=== PATIENT | male | born 1985 | race African-American/Black ===

== ENCOUNTER 2017-12-31 16:59 | Emergency (ER) | payer SELFPAY ==
[2017-12-31 17:08] VITALS: BP 110/68; PULSE 73; TEMP 98; BMI 25.9
--- NOTE | 2017-12-31 17:53 | PDOC ---
History of Present Illness - General Chief Complaint: Suicidal Stated Complaint: SUICIDAL, SUBSTANCE ABUSE Time Seen by Provider: 12/31/17 17:20 History Source: Patient Exam Limitations: No Limitations - History of Present Illness Initial Comments: 12/31/17 17:43 32 yo male no significant pmh presents with personnel for a 1st time suicidal thoughts. Patient states he is going through a rough time since he just found out he will only be able to see his son 1x a week for [address] and was just kicked out of the house by his mother since he is not paying rent. Patient admits to a 14 year history of alcohol and drug abuse and states he used 3 grams of cocaine and drank 1 pint of liquor today. Patient denies current suicidal or homicidal thoughts and does not have a plan in which to hurt himself. 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 Denies CP, SOB or any current medical complaints. Last drink 2pm After speaking with the [place], concerns for patients placement and detox are apparent. Past History - Past Medical History Allergies/Adverse Reactions: Allergies Allergy/AdvReac Type Severity Reaction Status Date / Time No Known Allergies Allergy Verified 12/31/17 17:09 Home Medications: Ambulatory Orders NK [No Known Home Medication] 02/26/16 Anemia: No Asthma: No Cancer: No Cardiac Disorders: No CVA: No COPD: No CHF: No Dementia: No Diabetes: No GI Disorders: No Disorders: No HTN: No Hypercholesterolemia: No Kidney Stones: No Liver Disease: No Seizures: No Thyroid Disease: No - Surgical History Abdominal Surgery: No Appendectomy: No Cardiac Surgery: No Cholecystectomy: No Lung Surgery: No Neurologic Surgery: No Orthopedic Surgery: No - Reproductive History Testicular Surgery: No - Suicide/Smoking/Psychosocial Hx Smoking History: Former smoker Have you smoked in the past 12 months: Yes Number of Cigarettes Smoked Daily: 10 Cigars Per Day: 0 Information on smoking cessation initiated: No 'Breaking Loose' booklet given: 02/26/16 Hx Alcohol Use: Yes Drug/Substance Use Hx: Yes (COCAINE MARIJUANA) Substance Use Type: Cocaine, Marijuana Hx Substance Use Treatment: No Review of Systems - Review of Systems Constitutional: No: Chills, Fever Respiratory: No: Shortness of Breath Cardiac (ROS): No: Chest Pain, Irregular Heart Rate ABD/GI: No: Constipated, Diarrhea, Nausea, Vomiting : No: Burning, Dysuria Neurological: Yes: Headache (mild) Psychiatric: Yes: Other (thoughts of harm today, no current SI or HI) *Physical Exam - Vital Signs Last Vital Signs Temp Pulse Resp BP Pulse Ox 98 F 73 18 110/68 98 12/31/17 17:01 12/31/17 17:01 12/31/17 17:01 12/31/17 17:01 12/31/17 17:01 - Physical Exam General Appearance: Yes: Nourished, Appropriately Dressed. No: Apparent Distress HEENT: positive: EOMI, BARBARA Respiratory/Chest: positive: Lungs Clear, Normal Breath Sounds. negative: Respiratory Distress, Crackles, Wheezing Cardiovascular: positive: Regular Rhythm, Regular Rate, S1, S2. negative: Edema , JVD, Murmur Gastrointestinal/Abdominal: positive: Normal Bowel Sounds. negative: Distended , Guarding, Rebound, Tenderness Musculoskeletal: positive: Normal Inspection Extremity: positive: Normal Capillary Refill Integumentary: positive: Normal Color, Dry, Warm Neurologic: positive: Fully Oriented, Alert. negative: Normal Mood/Affect ( depressed) Medical Decision Making - Medical Decision Making 12/31/17 18:07 12/31/17 17:43 32 yo male no significant pmh presents with personnel for a 1st time suicidal thoughts. Patient states he is going through a rough time since he just found out he will only be able to see his son 1x a week for [address] and was just kicked out of the house by his mother since he is not paying rent. Patient admits to a 14 year history of alcohol and drug abuse and states he used 3 grams of cocaine and drank 1 pint of liquor today. Patient denies current suicidal or homicidal thoughts and does not have a plan in which to hurt himself. 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 Denies CP, SOB or any current medical complaints. After speaking with the [facility], concerns for patients placement and detox are apparent. Behavioral health/Psych follow up appoint attempting to be set up this coming Tuesday (2 days from now) Will contact [facility] for detox. 12/31/17 19:41 [facility] accepts the patient and will be discharged 12/31/17 19:43 *DC/Admit/Observation/Transfer Diagnosis at time of Disposition: Alcohol abuse Intoxication by drug Qualifiers: Complication of substance-induced condition: uncomplicated Qualified Code(s): F19.920 - Other psychoactive substance use, unspecified with intoxication, uncomplicated - Discharge Dispostion Disposition: RETIREMENT FACILITY Condition at time of disposition: Stable Decision to Admit order: No - Referrals Referrals: Deandre Adame MD [Staff Physician] - - Patient Instructions Printed Discharge Instructions: DI for Suicidal Ideation-Adult Additional Instructions: Transferred to [facility] for Detox Please follow up with the Primary Care Doctor referred. Follow up with behavioral health and Psychiatry with an appointment made by the [facility] Cunningham and [facility] Cerna. Thank you - Post Discharge Activity Forms/Work/School Notes: My Personal Safety Plan
[2017-12-31] MEDS ORDERED: IBUPROFEN 600 MG TABLET (FP) PO ONE ×2 (19:38→19:41)
--- NOTE | 2017-12-31 20:14 | PDOC ---
Attending Attestation - Resident Resident Name: WinsomeLaurent - ED Attending Attestation I have performed the following: I have examined & evaluated the patient, The case was reviewed & discussed with the resident, I agree w/resident's findings & plan, Exceptions are as noted - HPI HPI: 12/31/17 20:05 32 M with no PMH who presents to ED intoxicated. Pt states that he drank a bottle of mony and used 3 grams of cocaine today. Pt endorse significant life stressors, including difficulty seeing his son and being kicked out of his mom's house. 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 Patient endorses feeling depressed but adamantly denies having any suicidal ideations or homicidal ideations. Denies ever having expressed suicidal ideation. Denies any prior h/o suicide attempts or depression. Denies auditory or visual hallucinations. Allergies: None Social history: Current Alcohol use. Current cocaine use. No smoking. Surgical history: None PMD: None - Physicial Exam PE: 12/31/17 20:14 "GENERAL: Awake, alert, and fully oriented, in no acute distress. HEAD: No signs of trauma EYES: PERRLA, EOMI, sclera anicteric, conjunctiva clear ENT: Auricles normal inspection, hearing grossly normal, nares patent, oropharynx clear without exudates. Moist mucosa NECK: Nontender, no stepoffs, Normal ROM, supple, no lymphadenopathy, JVD, or masses LUNGS: Breath sounds equal, clear to auscultation bilaterally. No wheezes, and no crackles HEART: Regular rate and rhythm, normal S1 and S2, no murmurs, rubs or gallops ABDOMEN: Soft, nontender, normoactive bowel sounds. No guarding, no rebound. No masses EXTREMITIES: Normal range of motion, no edema. No clubbing or cyanosis. No cords, erythema, or tenderness NEUROLOGICAL: Cranial nerves II through XII intact. 5/5 strength and sensation in all extremities, Normal speech, normal gait, normal cerebellar function SKIN: Warm, Dry, normal turgor, no rashes or lesions noted." - Medical Decision Making 12/31/17 20:15 32 M brought to ED for intoxication. Pt adamantly denies SI/HI/AVH to me. Pt appears clinically sober at this time, seems to be of sound judgment. Does not have any distracting injury and has capacity to make decisions for himself. I offered pt psych consultation for his depression, which he refused. However, he is amenable to going to detox. Spoke with [facility] [place] [facility], who has bed available. - [facility]fer [facility] Pt is well appearing, with normal vitals. Clinically stable for DC at this time. I discussed the physical exam findings, ancillary test results and final diagnoses with the patient. I answered all of the patient's questions. The patient was satisfied with the care received and felt comfortable with the discharge plan and treatment plan. The patient agrees to follow up with the primary care physician within 24-72 hours.
== END 2017-12-31 19:54 | disposition other institution (70) ==
LOC: JER 16:59
DX: F10.10 Alcohol abuse, uncomplicated (principal); F14.10 Cocaine abuse, uncomplicated; F12.10 Cannabis abuse, uncomplicated
CPT/HCPCS: 99282-25

== ENCOUNTER 2017-12-31 21:51 | Inpatient (IN) | payer SELFPAY ==
[2017-12-31] MEDS ORDERED: MELATONIN 5 MG TABLETS PO PRN (22:00)
[2017-12-31 22:06] VITALS: BMI 25.8
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
[2017-12-31] MEDS ORDERED: NICOTINE POLACRILEX 2 MG GUM BC PRN (22:30)
[2017-12-31] MEDS ORDERED: MAGNESIUM HYDROX 2400MG/30ML ORAL SUSPENSION 30 ML CUP PO PRN (22:30)
[2017-12-31] MEDS ORDERED: MENTHOL/PHENOL 1 EACH UD MM PRN (22:30)
[2017-12-31] MEDS ORDERED: ACETAMINOPHEN 325 MG TABLET (FP) PO PRN (22:30)
[2017-12-31] MEDS ORDERED: guaiFENesin/D-METHORPHAN HB 10 ML UNIT-DOSE CUPS PO PRN (22:30)
[2017-12-31] MEDS ORDERED: LOPERAMIDE HCL 2 MG CAPSULE PO PRN (22:30)
[2017-12-31] MEDS ORDERED: IBUPROFEN 400 MG TABLET (FP) PO PRN (22:30)
[2017-12-31] MEDS ORDERED: chlordiazePOXIDE HCL 25 MG CAPSULE PO ONE (22:30)
[2017-12-31] MEDS ORDERED: P-EPHED 60MG/TRIPROLIDI 2.5MG TABLET PO PRN (22:30)
[2017-12-31] MEDS ORDERED: MAG HYDROX/AL HYDROX/SIMETH 30 ML UNIT-DOSE CUP PO PRN (22:30)
[2017-12-31] MEDS ORDERED: MAGNESIUM CITRATE 300 ML BOTTLE PO PRN (22:30)
[2017-12-31] MEDS ORDERED: hydrOXYzine PAMOATE 25 MG CAPSULE (FP) PO PRN (22:30)
[2017-12-31] MEDS ORDERED: chlordiazePOXIDE HCL 25 MG CAPSULE PO PRN (22:30)
[2017-12-31] MEDS: chlordiazePOXIDE HCL 25 MG CAPSULE PO SCH (23:40)
[2018-01-01 02:02] LABS: URINE APPEARANCE TURBID; URINE BILIRUBIN NEGATIVE (<2.0 mg/dL); URINE COLOR YELLOW; URINE GLUCOSE (UA) NEGATIVE (NEGATIVE); URINE KETONE TRACE (NEGATIVE); URINE LEUK ESTERASE NEGATIVE (NEGATIVE); URINE NITRITE NEGATIVE (NEGATIVE); URINE UROBILINOGEN NEGATIVE mg/dL (0.2-1.0)
[2018-01-01 02:13] LABS: URINE PROTEIN 1+ (NEGATIVE)
[2018-01-01 02:16] LABS: URINE MUCUS MANY
[2018-01-01] MEDS: chlordiazePOXIDE HCL 25 MG CAPSULE PO SCH ×4 (07:01→22:54)
[2018-01-01 10:43] LABS: HEMATOCRIT 40.3 % (35.4-49); HEMOGLOBIN 13.7 GM/dL (11.7-16.9); MCH 34.1 pg (25.7-33.7); MCHC 33.9 g/dl (32.0-35.9); MEAN CELL VOLUME 100.6 fl (80-96); MEAN PLT VOLUME 9.1 fl (7.5-11.1); PLATELET COUNT 152 K/MM3 (134-434); RBC 4.01 M/mm3 (4.00-5.60); RDW 12.5 % (11.9-15.9); WHITE BLOOD COUNT 3.6 K/mm3 (4.0-10.0)
[2018-01-01 10:55] LABS: CHLORIDE 104 mmol/L (98-107); POTASSIUM 3.5 mmol/L (3.5-5.1); SODIUM 144 mmol/L (136-145)
[2018-01-01] MEDS: PRENATAL VITAMINS W/ FOLIC ACID TABLET (FP) PO SCH (10:55)
[2018-01-01] MEDS: NICOTINE 14 MG/24 HOURS TOPICAL PATCH TD SCH (10:55)
[2018-01-01 11:06] LABS: ALBUMIN 3.5 g/dl (3.4-5.0); ALK PHOS 56 U/L (45-117); ANION GAP 12 MMOL/L (8-16); BILIRUBIN,TOTAL 0.8 mg/dL (0.2-1.0); BLOOD UREA NITROGEN 18 mg/dL (7-18); CALCIUM 8.7 mg/dL (8.5-10.1); CO2 28 mmol/L (21-32); CREATININE 1.2 mg/dL (0.55-1.3); GLUCOSE,RANDOM 95 mg/dL (74-106); SGOT/AST 20 U/L (15-37); SGPT/ALT 26 U/L (13-61); TOT PROT 6.6 g/dl (6.4-8.2)
--- NOTE | 2018-01-01 11:58 | CONSULT ---
[facility] Psychiatric Consult - Data Date of interview: 01/01/18 Admission source: [facility] Identifying data: 2nd Detox admission for this 32 y/o AA male single, employed, domiciled,, reside with his mother father of 1. His prior admission was in [facility] last year Substance Abuse History: Here for ETOH, cocaine, cannabis and nicotine. drink alcohol and use drugs in the context of ongoing conflicts with his son mother' s. He complains of having trouble seeing his child and was kept away. Refer to addiction counselor summary for detailed substance use history Medical History: No acute medical problem. History of GERD Psychiatric History: No psychiatric history, but feels depressed over conflicts with his child' mother unable to see his child, feeks highly distressed about it. He denies appetite or sleep disturbances, denies anxiety or mood swings, denies suicidal or homicidal ideation Physical/Sexual Abuse/Trauma History: No history of abuse Additional Comment: None Mental Status Exam - Mental Status Exam Alert and Oriented to: Place, Person Cognitive Function: Good Patient Appearance: Well Groomed Mood: Anxious Affect: Appropriate Patient Behavior: Cooperative Speech Pattern: Clear Voice Loudness: Normal, Mildly Soft/Quiet Thought Process: Intact Thought Disorder: Not Present Hallucinations: Denies Suicidal Ideation: Denies Homicidal Ideation: Denies Insight/Judgement: Poor Muscle strength/Tone: Normal Psychiatric Findings - Problem List ([place] 1, 2,3) (1) GERD (gastroesophageal reflux disease) Current Visit: Yes Status: Chronic Qualifiers: Esophagitis presence: esophagitis presence not specified Qualified Code(s) : K21.9 - Gastro-esophageal reflux disease without esophagitis (2) Alcohol abuse Current Visit: No Status: Acute (3) Cannabis dependence Current Visit: No Status: Acute (4) Nicotine dependence Current Visit: No Status: Acute - Initial Treatment Plan Initial Treatment Plan: Continue detox treatment. Monitor response
--- NOTE | 2018-01-01 13:33 | PN ---
[facility] CIWA - CIWA Score Nausea/Vomitin-Mild Nausea/No Vomiting Muscle Tremors: 4-Moderate,w/Arms Extend Anxiety: 4-Mod. Anxious/Guarded Agitation: 4-Moderately Restless Paroxysmal Sweats: 1-Minimal Palms Moist Orientation: 0-Oriented Tacttile Disturbances: 1-Very Mild Itch/Numbness Auditory Disturbances: 1-Very Mild Visual Disturbances: 0-None Headache: 0-None Present CIWA-Ar Total Score: 16 BHS Progress Note (SOAP) Subjective: tremor sweat restlessness shake and chill Objective: 01/01/18 13:33 Vital Signs Temperature 97.7 F 01/01/18 09:26 Pulse Rate 60 01/01/18 09:26 Respiratory Rate 18 01/01/18 09:26 Blood Pressure 112/91 01/01/18 09:26 O2 Sat by Pulse Oximetry (%) Laboratory Last Values WBC 3.6 K/mm3 (4.0-10.0) L 01/01/18 07:25 RBC 4.01 M/mm3 (4.00-5.60) 01/01/18 07:25 Hgb 13.7 GM/dL (11.7-16.9) 01/01/18 07:25 Hct 40.3 % (35.4-49) 01/01/18 07:25 MCV 100.6 fl (80-96) H 01/01/18 07:25 MCH 34.1 pg (25.7-33.7) H 01/01/18 07:25 MCHC 33.9 g/dl (32.0-35.9) 01/01/18 07:25 RDW 12.5 % (11.9-15.9) 01/01/18 07:25 Plt Count 152 K/MM3 (134-434) 01/01/18 07:25 MPV 9.1 fl (7.5-11.1) 01/01/18 07:25 Sodium 144 mmol/L (136-145) 01/01/18 07:25 Potassium 3.5 mmol/L (3.5-5.1) 01/01/18 07:25 Chloride 104 mmol/L (98-107) 01/01/18 07:25 Carbon Dioxide 28 mmol/L (21-32) 01/01/18 07:25 Anion Gap 12 MMOL/L (8-16) 01/01/18 07:25 BUN 18 mg/dL (7-18) 01/01/18 07:25 Creatinine 1.2 mg/dL (0.55-1.3) 01/01/18 07:25 Creat Clearance w eGFR > 60 (>60) 01/01/18 07:25 Random Glucose 95 mg/dL (74-106) 01/01/18 07:25 Calcium 8.7 mg/dL (8.5-10.1) 01/01/18 07:25 Total Bilirubin 0.8 mg/dL (0.2-1.0) 01/01/18 07:25 AST 20 U/L (15-37) 01/01/18 07:25 ALT 26 U/L (13-61) 01/01/18 07:25 Alkaline Phosphatase 56 U/L (45-117) 01/01/18 07:25 Total Protein 6.6 g/dl (6.4-8.2) 01/01/18 07:25 Albumin 3.5 g/dl (3.4-5.0) 01/01/18 07:25 Urine Color Yellow 12/31/17 23:21 Urine Appearance Turbid 12/31/17 23:21 Urine pH 5.0 (5.0-8.0) 12/31/17 23:21 Ur Specific [place] 1.031 (1.001-1.035) 12/31/17 23:21 Urine Protein 1+ (NEGATIVE) H 12/31/17 23:21 Urine Glucose (UA) Negative (NEGATIVE) 12/31/17 23:21 Urine Ketones Trace (NEGATIVE) H 12/31/17 23:21 Urine Blood Negative (NEGATIVE) 12/31/17 23:21 Urine Nitrite Negative (NEGATIVE) 12/31/17 23:21 Urine Bilirubin Negative (<2.0 mg/dL) 12/31/17 23:21 Urine Urobilinogen Negative mg/dL (0.2-1.0) 12/31/17 23:21 Ur Leukocyte Esterase Negative (NEGATIVE) 12/31/17 23:21 Urine WBC (Auto) None /hpf (3-5) 12/31/17 23:21 Urine RBC (Auto) None /hpf (0-3) 12/31/17 23:21 Urine Mucus Many 12/31/17 23:21 RPR Titer Nonreactive (NONREACTIVE) 01/01/18 07:25 HIV 1&2 Antibody Screen Negative 01/01/18 07:25 HIV P24 Antigen Negative 01/01/18 07:25 lab noted Assessment: 01/01/18 13:33 withdrawal sx Plan: continue detox
--- NOTE | 2018-01-01 22:28 | EKG ---
Test Reason : Blood Pressure : / mmHG Vent. Rate : 057 BPM Atrial Rate : 057 BPM P-R Int : 196 ms QRS Dur : 094 ms QT Int : 430 ms P-R-T Axes : 063 032 045 degrees QTc Int : 418 ms SINUS BRADYCARDIA POSSIBLE LEFT ATRIAL ENLARGEMENT BORDERLINE ECG NO PREVIOUS ECGS AVAILABLE Confirmed by JOSEMANUEL GOMEZ MD ([id number]) on 01/01/2018 10:28:16 PM Referred By: Confirmed By:JOSEMANUEL GOMEZ MD
[2018-01-01] MEDS: THIAMINE HCL 100 MG TABLET (FP) PO SCH (22:54)
[2018-01-02] MEDS: chlordiazePOXIDE HCL 25 MG CAPSULE PO SCH ×3 (06:30→18:01)
[2018-01-02] MEDS: NICOTINE 14 MG/24 HOURS TOPICAL PATCH TD SCH (10:54)
[2018-01-02] MEDS: PRENATAL VITAMINS W/ FOLIC ACID TABLET (FP) PO SCH (10:54)
--- NOTE | 2018-01-02 15:13 | PN ---
[facility] CIWA - CIWA Score Nausea/Vomitin-No Nausea/No Vomiting Muscle Tremors: 3 Anxiety: 2 Agitation: 3 Paroxysmal Sweats: 1-Minimal Palms Moist Orientation: 0-Oriented Tacttile Disturbances: 1-Very Mild Itch/Numbness Auditory Disturbances: 1-Very Mild Visual Disturbances: 0-None Headache: 0-None Present CIWA-Ar Total Score: 11 BHS Progress Note (SOAP) Subjective: diarrhea sweat tremor restlessness irritable Objective: 01/02/18 15:12 Vital Signs Temperature 97.0 F L 01/02/18 13:19 Pulse Rate 57 L 01/02/18 13:19 Respiratory Rate 20 01/02/18 13:19 Blood Pressure 126/77 01/02/18 13:19 O2 Sat by Pulse Oximetry (%) Laboratory Last Values WBC 3.6 K/mm3 (4.0-10.0) L 01/01/18 07:25 RBC 4.01 M/mm3 (4.00-5.60) 01/01/18 07:25 Hgb 13.7 GM/dL (11.7-16.9) 01/01/18 07:25 Hct 40.3 % (35.4-49) 01/01/18 07:25 MCV 100.6 fl (80-96) H 01/01/18 07:25 MCH 34.1 pg (25.7-33.7) H 01/01/18 07:25 MCHC 33.9 g/dl (32.0-35.9) 01/01/18 07:25 RDW 12.5 % (11.9-15.9) 01/01/18 07:25 Plt Count 152 K/MM3 (134-434) 01/01/18 07:25 MPV 9.1 fl (7.5-11.1) 01/01/18 07:25 Sodium 144 mmol/L (136-145) 01/01/18 07:25 Potassium 3.5 mmol/L (3.5-5.1) 01/01/18 07:25 Chloride 104 mmol/L (98-107) 01/01/18 07:25 Carbon Dioxide 28 mmol/L (21-32) 01/01/18 07:25 Anion Gap 12 MMOL/L (8-16) 01/01/18 07:25 BUN 18 mg/dL (7-18) 01/01/18 07:25 Creatinine 1.2 mg/dL (0.55-1.3) 01/01/18 07:25 Creat Clearance w eGFR > 60 (>60) 01/01/18 07:25 Random Glucose 95 mg/dL (74-106) 01/01/18 07:25 Calcium 8.7 mg/dL (8.5-10.1) 01/01/18 07:25 Total Bilirubin 0.8 mg/dL (0.2-1.0) 01/01/18 07:25 AST 20 U/L (15-37) 01/01/18 07:25 ALT 26 U/L (13-61) 01/01/18 07:25 Alkaline Phosphatase 56 U/L (45-117) 01/01/18 07:25 Total Protein 6.6 g/dl (6.4-8.2) 01/01/18 07:25 Albumin 3.5 g/dl (3.4-5.0) 01/01/18 07:25 Urine Color Yellow 12/31/17 23:21 Urine Appearance Turbid 12/31/17 23:21 Urine pH 5.0 (5.0-8.0) 12/31/17 23:21 Ur Specific [place] 1.031 (1.001-1.035) 12/31/17 23:21 Urine Protein 1+ (NEGATIVE) H 12/31/17 23:21 Urine Glucose (UA) Negative (NEGATIVE) 12/31/17 23:21 Urine Ketones Trace (NEGATIVE) H 12/31/17 23:21 Urine Blood Negative (NEGATIVE) 12/31/17 23:21 Urine Nitrite Negative (NEGATIVE) 12/31/17 23:21 Urine Bilirubin Negative (<2.0 mg/dL) 12/31/17 23:21 Urine Urobilinogen Negative mg/dL (0.2-1.0) 12/31/17 23:21 Ur Leukocyte Esterase Negative (NEGATIVE) 12/31/17 23:21 Urine WBC (Auto) None /hpf (3-5) 12/31/17 23:21 Urine RBC (Auto) None /hpf (0-3) 12/31/17 23:21 Urine Mucus Many 12/31/17 23:21 RPR Titer Nonreactive (NONREACTIVE) 01/01/18 07:25 HIV 1&2 Antibody Screen Negative 01/01/18 07:25 HIV P24 Antigen Negative 01/01/18 07:25 lab noted Assessment: 01/02/18 15:13 withdrawal sx Plan: continue detox
[2018-01-02] MEDS: chlordiazePOXIDE 5 MG CAPSULE PO SCH (22:42)
[2018-01-02] MEDS: THIAMINE HCL 100 MG TABLET (FP) PO SCH (22:42)
[2018-01-03] MEDS: chlordiazePOXIDE 5 MG CAPSULE PO SCH ×3 (07:37→17:42)
[2018-01-03] MEDS: PRENATAL VITAMINS W/ FOLIC ACID TABLET (FP) PO SCH (11:00)
[2018-01-03] MEDS: NICOTINE 14 MG/24 HOURS TOPICAL PATCH TD SCH (11:00)
--- NOTE | 2018-01-03 11:40 | PN ---
S Progress Note (SOAP) Subjective: feeling better no gi distress no tremor less sweat Objective: 01/03/18 11:38 Vital Signs Temperature 97.8 F 01/03/18 09:49 Pulse Rate 49 L 01/03/18 09:49 Respiratory Rate 18 01/03/18 09:49 Blood Pressure 115/65 01/03/18 09:49 O2 Sat by Pulse Oximetry (%) Laboratory Last Values WBC 3.6 K/mm3 (4.0-10.0) L 01/01/18 07:25 RBC 4.01 M/mm3 (4.00-5.60) 01/01/18 07:25 Hgb 13.7 GM/dL (11.7-16.9) 01/01/18 07:25 Hct 40.3 % (35.4-49) 01/01/18 07:25 MCV 100.6 fl (80-96) H 01/01/18 07:25 MCH 34.1 pg (25.7-33.7) H 01/01/18 07:25 MCHC 33.9 g/dl (32.0-35.9) 01/01/18 07:25 RDW 12.5 % (11.9-15.9) 01/01/18 07:25 Plt Count 152 K/MM3 (134-434) 01/01/18 07:25 MPV 9.1 fl (7.5-11.1) 01/01/18 07:25 Sodium 144 mmol/L (136-145) 01/01/18 07:25 Potassium 3.5 mmol/L (3.5-5.1) 01/01/18 07:25 Chloride 104 mmol/L (98-107) 01/01/18 07:25 Carbon Dioxide 28 mmol/L (21-32) 01/01/18 07:25 Anion Gap 12 MMOL/L (8-16) 01/01/18 07:25 BUN 18 mg/dL (7-18) 01/01/18 07:25 Creatinine 1.2 mg/dL (0.55-1.3) 01/01/18 07:25 Creat Clearance w eGFR > 60 (>60) 01/01/18 07:25 Random Glucose 95 mg/dL (74-106) 01/01/18 07:25 Calcium 8.7 mg/dL (8.5-10.1) 01/01/18 07:25 Total Bilirubin 0.8 mg/dL (0.2-1.0) 01/01/18 07:25 AST 20 U/L (15-37) 01/01/18 07:25 ALT 26 U/L (13-61) 01/01/18 07:25 Alkaline Phosphatase 56 U/L (45-117) 01/01/18 07:25 Total Protein 6.6 g/dl (6.4-8.2) 01/01/18 07:25 Albumin 3.5 g/dl (3.4-5.0) 01/01/18 07:25 Urine Color Yellow 12/31/17 23:21 Urine Appearance Turbid 12/31/17 23:21 Urine pH 5.0 (5.0-8.0) 12/31/17 23:21 Ur Specific [place] 1.031 (1.001-1.035) 12/31/17 23:21 Urine Protein 1+ (NEGATIVE) H 12/31/17 23:21 Urine Glucose (UA) Negative (NEGATIVE) 12/31/17 23:21 Urine Ketones Trace (NEGATIVE) H 12/31/17 23:21 Urine Blood Negative (NEGATIVE) 12/31/17 23:21 Urine Nitrite Negative (NEGATIVE) 12/31/17 23:21 Urine Bilirubin Negative (<2.0 mg/dL) 12/31/17 23:21 Urine Urobilinogen Negative mg/dL (0.2-1.0) 12/31/17 23:21 Ur Leukocyte Esterase Negative (NEGATIVE) 12/31/17 23:21 Urine WBC (Auto) None /hpf (3-5) 12/31/17 23:21 Urine RBC (Auto) None /hpf (0-3) 12/31/17 23:21 Urine Mucus Many 12/31/17 23:21 RPR Titer Nonreactive (NONREACTIVE) 01/01/18 07:25 HIV 1&2 Antibody Screen Negative 01/01/18 07:25 HIV P24 Antigen Negative 01/01/18 07:25 lab noted Assessment: 01/03/18 11:39 Vital Signs Temperature 97.8 F 01/03/18 09:49 Pulse Rate 49 L 01/03/18 09:49 Respiratory Rate 18 01/03/18 09:49 Blood Pressure 115/65 01/03/18 09:49 O2 Sat by Pulse Oximetry (%) Laboratory Last Values WBC 3.6 K/mm3 (4.0-10.0) L 01/01/18 07:25 RBC 4.01 M/mm3 (4.00-5.60) 01/01/18 07:25 Hgb 13.7 GM/dL (11.7-16.9) 01/01/18 07:25 Hct 40.3 % (35.4-49) 01/01/18 07:25 MCV 100.6 fl (80-96) H 01/01/18 07:25 MCH 34.1 pg (25.7-33.7) H 01/01/18 07:25 MCHC 33.9 g/dl (32.0-35.9) 01/01/18 07:25 RDW 12.5 % (11.9-15.9) 01/01/18 07:25 Plt Count 152 K/MM3 (134-434) 01/01/18 07:25 MPV 9.1 fl (7.5-11.1) 01/01/18 07:25 Sodium 144 mmol/L (136-145) 01/01/18 07:25 Potassium 3.5 mmol/L (3.5-5.1) 01/01/18 07:25 Chloride 104 mmol/L (98-107) 01/01/18 07:25 Carbon Dioxide 28 mmol/L (21-32) 01/01/18 07:25 Anion Gap 12 MMOL/L (8-16) 01/01/18 07:25 BUN 18 mg/dL (7-18) 01/01/18 07:25 Creatinine 1.2 mg/dL (0.55-1.3) 01/01/18 07:25 Creat Clearance w eGFR > 60 (>60) 01/01/18 07:25 Random Glucose 95 mg/dL (74-106) 01/01/18 07:25 Calcium 8.7 mg/dL (8.5-10.1) 01/01/18 07:25 Total Bilirubin 0.8 mg/dL (0.2-1.0) 01/01/18 07:25 AST 20 U/L (15-37) 01/01/18 07:25 ALT 26 U/L (13-61) 01/01/18 07:25 Alkaline Phosphatase 56 U/L (45-117) 01/01/18 07:25 Total Protein 6.6 g/dl (6.4-8.2) 01/01/18 07:25 Albumin 3.5 g/dl (3.4-5.0) 01/01/18 07:25 Urine Color Yellow 12/31/17 23:21 Urine Appearance Turbid 12/31/17 23:21 Urine pH 5.0 (5.0-8.0) 12/31/17 23:21 Ur Specific [place] 1.031 (1.001-1.035) 12/31/17 23:21 Urine Protein 1+ (NEGATIVE) H 12/31/17 23:21 Urine Glucose (UA) Negative (NEGATIVE) 12/31/17 23:21 Urine Ketones Trace (NEGATIVE) H 12/31/17 23:21 Urine Blood Negative (NEGATIVE) 12/31/17 23:21 Urine Nitrite Negative (NEGATIVE) 12/31/17 23:21 Urine Bilirubin Negative (<2.0 mg/dL) 12/31/17 23:21 Urine Urobilinogen Negative mg/dL (0.2-1.0) 12/31/17 23:21 Ur Leukocyte Esterase Negative (NEGATIVE) 12/31/17 23:21 Urine WBC (Auto) None /hpf (3-5) 12/31/17 23:21 Urine RBC (Auto) None /hpf (0-3) 12/31/17 23:21 Urine Mucus Many 12/31/17 23:21 RPR Titer Nonreactive (NONREACTIVE) 01/01/18 07:25 HIV 1&2 Antibody Screen Negative 01/01/18 07:25 HIV P24 Antigen Negative 01/01/18 07:25 lab noted mild withdrawal sx 01/03/18 11:39 Plan: medically supervised detox
[2018-01-03] MEDS: THIAMINE HCL 100 MG TABLET (FP) PO SCH (22:10)
[2018-01-03] MEDS: chlordiazePOXIDE HCL 10 MG CAPSULE PO SCH (22:10)
[2018-01-04] MEDS: chlordiazePOXIDE HCL 10 MG CAPSULE PO SCH (06:13)
--- NOTE | 2018-01-04 08:54 | PN ---
[facility] Progress Note (SOAP) Subjective: feeling good Objective: 01/04/18 08:53 Vital Signs Temperature 97.2 F L 01/04/18 06:00 Pulse Rate 54 L 01/04/18 06:00 Respiratory Rate 18 01/04/18 06:00 Blood Pressure 112/67 01/04/18 06:00 O2 Sat by Pulse Oximetry (%) Laboratory Tests 12/31/17 01/01/18 01/01/18 23:21 07:25 07:25 WBC 3.6 L RBC 4.01 Hgb 13.7 Hct 40.3 MCV 100.6 H MCH 34.1 H MCHC 33.9 RDW 12.5 Plt Count 152 MPV 9.1 Sodium Potassium Chloride Carbon Dioxide Anion Gap BUN Creatinine Creat Clearance w eGFR Random Glucose Calcium Total Bilirubin AST ALT Alkaline Phosphatase Total Protein Albumin Urine Color Yellow Urine Appearance Turbid Urine pH 5.0 Ur Specific [place] 1.031 Urine Protein 1+ H Urine Glucose (UA) Negative Urine Ketones Trace H Urine Blood Negative Urine Nitrite Negative Urine Bilirubin Negative Urine Urobilinogen Negative Ur Leukocyte Esterase Negative Urine WBC (Auto) None Urine RBC (Auto) None Urine Mucus Many RPR Titer HIV 1&2 Antibody Screen Negative HIV P24 Antigen Negative 01/01/18 01/01/18 07:25 07:25 WBC RBC Hgb Hct MCV MCH MCHC RDW Plt Count MPV Sodium 144 Potassium 3.5 Chloride 104 Carbon Dioxide 28 Anion Gap 12 BUN 18 Creatinine 1.2 Creat Clearance w eGFR > 60 Random Glucose 95 Calcium 8.7 Total Bilirubin 0.8 AST 20 ALT 26 Alkaline Phosphatase 56 Total Protein 6.6 Albumin 3.5 Urine Color Urine Appearance Urine pH Ur Specific [place] Urine Protein Urine Glucose (UA) Urine Ketones Urine Blood Urine Nitrite Urine Bilirubin Urine Urobilinogen Ur Leukocyte Esterase Urine WBC (Auto) Urine RBC (Auto) Urine Mucus RPR Titer Nonreactive HIV 1&2 Antibody Screen HIV P24 Antigen pt aox3 in nad ambulating Assessment: 01/04/18 08:53 detox completed Plan: d/c today increase fluids
--- NOTE | 2018-01-04 08:56 | DS ---
[facility] Detox Discharge Summary Admission Date: 12/31/17 Discharge Date: 01/04/18 - History Present History: Alcohol Dependence, Cannabis Dependence, Cocaine Dependence - Physical Exam Results Vital Signs: Vital Signs Temperature 97.2 F L 01/04/18 06:00 Pulse Rate 54 L 01/04/18 06:00 Respiratory Rate 18 01/04/18 06:00 Blood Pressure 112/67 01/04/18 06:00 O2 Sat by Pulse Oximetry (%) - Treatment Hospital Course: Detox Protocol Followed, Detoxed Safely, Responded well, Discharged Condition Good - Medication Discharge Medications: Ambulatory Orders NK [No Known Home Medication] 02/26/16 - Diagnosis (1) Anxiety and depression Current Visit: Yes Status: Chronic (2) GERD (gastroesophageal reflux disease) Current Visit: Yes Status: Chronic Qualifiers: Esophagitis presence: esophagitis presence not specified Qualified Code(s) : K21.9 - Gastro-esophageal reflux disease without esophagitis (3) Alcohol dependence Current Visit: Yes Status: Acute Qualifiers: Substance use status: uncomplicated Qualified Code(s): F10.20 - Alcohol dependence, uncomplicated (4) Cannabis dependence Current Visit: No Status: Chronic (5) Nicotine dependence Current Visit: Yes Status: Chronic Qualifiers: Nicotine product type: cigarettes Substance use status: uncomplicated Qualified Code(s): F17.210 - Nicotine dependence, cigarettes, uncomplicated (6) Cocaine dependence Current Visit: Yes Status: Chronic Qualifiers: Substance use status: uncomplicated Qualified Code(s): F14.20 - Cocaine dependence, uncomplicated - AMA Did Patient Leave Against Medical Advice: No
[2018-01-04 09:33] VITALS: BP 108/63; PULSE 58; TEMP 98.1
== END 2018-01-04 10:30 | disposition home or self-care (01) | DRG 774 ==
LOC: YASAS 21:51 → Y6N 22:32
PROC: HZ2ZZZZ Detoxification Services for Substance Abuse Treatment (ICD-10-PCS; principal; 2017-12-31)
DX: F10.230 Alcohol dependence with withdrawal, uncomplicated (principal); F14.20 Cocaine dependence, uncomplicated; F12.20 Cannabis dependence, uncomplicated; F17.210 Nicotine dependence, cigarettes, uncomplicated; F41.8 Other specified anxiety disorders; K21.9 Gastro-esophageal reflux disease without esophagitis; Z86.19 Personal history of other infectious and parasitic diseases
CPT/HCPCS: 36415; 80053; 81003; 81015; 85027; 86593; 87389; 93005; 93010